=== PATIENT | female | born 1985 | race Caucasian/White ===

== ENCOUNTER 2024-08-31 10:07 | Emergency (ER) | payer MEDICARE, MEDICAID ==
[~2024-08-31] VITALS: Ht 152.4 cm; Wt 44.0 kg
[2024-08-31 10:08] VITALS: PULSE 0; RESP 0; O2SAT 0
[2024-08-31 10:15] VITALS: BP 0/0; PULSE 0; RESP 0; O2SAT 0
[2024-08-31] MEDS ORDERED: EPINEPHrine HCL 1 MG/10 ML SYRG ONE (10:27)
--- NOTE | 2024-08-31 10:45 | ED.PDOC ---
History of Present Illness HPI Comments 39F is BIBA for the c/c of CPR x0930, today. Per EMS, the pt's father reported to the EMS that the pt tripped and fell, hitting her head onto a piece of wood at [employer] earlier today. The father stated that when they got back home the pt was complaining of a SEARS therefore which the pt passed out in front of the father. EMS states on receiving the call x 0924 and arriving x0928. On scene pupils were fixed/dilated, CPR started at 0930. En route to the ER EMS gave the pt Epinephrine x5, Narcan 4mg, intubation and I/O on Right Humerus. Arrival to the ED x1006 and CPR started x1006 and stopped x1032. I was not able to get a PMHx from the pt due from CPR but I did get some information from the EMS which include SZ-uncertified. Pt's family arrived to the ER shortly after the pt arrived. Chief Complaint: CPR Time Seen by MD: 10:06 Reviewed Notes: Nurses Notes, Sole Molder Notes, Medications, Allergies Allergies: Coded Allergies: NO KNOWN ALLERGIES (Unverified , 08/31/24) Information Source: Emergency Med Personnel Mode of Arrival: EMS Severity: Severe Timing: Minutes Duration: Since onset, Minutes Prehospital treatment: CPR, Intubation, Other (Epinephrine x5, Narcan 4mg and I/O on Right Humerus) Past Medical History PAST MEDICAL HISTORY: Seizures Surgical History: Denies all surgeries SOLAR SALES ASSESSOR History: No Pertinent SOLAR SALES ASSESSOR History Family History Family History: Reviewed,noncontributory to illness, Unknown Social History Smoker: Non-Smoker Alcohol: Denies ETOH Use Drugs: Denies Drug Use Lives In: Home Unable to Obtain due to: Medical Urgency, Intubated Was a procedure done? 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 Indication: Hypotension Room prepared for procedure: No Dray Truck Driver performed hand hygien: Yes Maximal sterile barrier precau: Mask/Eye shield, Sterile gown, Cap, Sterlie gloves, Large sterlie drape Skin Preparation: Chlorhexidine gluconate Skin preparation completely dr: Yes Insertion site: Right, Femoral Central line catheter type: Iet-[id number]-hbr dialysis Number of lumens: 3 Central line exchanged over a: Yes Antiseptic ointment applied to: No Post Assessment: No Pneumothorax Informed consent obtained: No Risks/benefits/alt described: No Differential Dx Considerations may include: Cardiac arrest, he will be, status epilepticus, X-Ray, Labs, Meds, VS Vital Signs Date Time Temp Pulse Resp B/P (MAP) Pulse Ox O2 Delivery O2 Flow Rate FiO2 08/31/24 11:01 Ambu-Bag 08/31/24 10:15 95.5 0 0 0/0 (0) 0 08/31/24 10:08 0 0 0 T-piece 0 100 100 X-Ray, Labs, Meds, VS Comment CPR performed, patient ultimately unfortunately. Time of 1ST Reevaluation: 10:32 Reevaluation 1ST: Worsened Patient Education/Counseling: Pt Unresponsive Family Education/Counseling: No Family Present Departure 1 Departure Time of Disposition: 17:31 Impression: Primary Impression: Cardiopulmonary arrest Disposition: 20 Condition: Critical Critical Care Note Critical Care Time?: Yes (45 min-critical care time only) Critical care comment: CRITICAL CARE TIME: 40 minutes Treatments/Evaluations: Close monitoring and treatment of unstable vital signs, cardiorespiratory, and neurologic status, while maintaining tight balance of fluid, respiratory, and cardiac interventions. This time includes discussing the case with the patient and the patients family. This time does not include all procedures stated elsewhere in this record. This time also includes reviewing old records, labs and radiological studies. This time includes examining and re- examining the patient. Additionally, this time also includes arranging care with admitting and consulting physicians. Stability Stability form required: No Heart Score Heart Score: Heart Score Response (Comments) Value History N/A 0 EKG N/A 0 Age N/A 0 Risk Factors N/A 0 Troponin N/A 0 Total 0 I personally scribed for JONATHAN ALEMAN MD ([email or web address]) on 08/31/24 at 10:45. Electronically submitted by Jimmie Caicedo ([email or web address]). JONATHAN ALEMAN MD Aug 31, 2024 10:45
--- NOTE | 2024-08-31 11:01 | RESUS ---
CODE BLUE ASSESSSMENT History of Events History of Events: Patient brought to ER via EMS CPR in progress Total downtime unclear Per family, patient had a fall injury at [employer] where she fell forward and hit her head on a wooden seat. Unknown cause of fall. Visible bruising to nasal area noted. Per family, patient has hx of seizures (unknown last seizure) and is normally aphasic. Family states patient was still awake after fall, bystanders assited patient into car. Family reports patient suddenly went unresponsive. EMS states patient was unresponsive and pulseless upon their arrival. CPR initially started by bystanders prior to EMS arrival. Last epi administered at approximately 1006 per EMS Initial Information Date: Aug 31, 2024 Time: 10:06 Location of Arrest: In Field Arrest Witnessed: Yes CPR started by whom: Bystander Pre-Hospital Care: ACLS Type of arrest: Cardiac, Respiratory Spontaneous Respirations: No Pulse Present: No Monitoring: Pulse Oximetry, Capnography, Telemetry Crash Cart Opened and Supplies: Yes Airway Ventilation Breathing at Onset: Assisted Oxygen Delivery Method: Ambu-Bag Artificial Ventilation: Bag/Endo tube Intubation Size: 6.0 cuffed Intubated by: EMS prior to ER arrival Intubated orally: Yes CO2 indicator used: Yes Confirmation: Auscultation, Exhaled CO2 Suctioning (Oral/Tracheal): Yes Circulation Circulation #1: Time: 10:08 Temperature (Fahrenheit): 95.9 Circulation Comment: asystole Circulation #2: Time: 10:12 Circulation Comment: asystole Circulation #3: Time: 10:15 Circulation Comment: asystole Circulation #4: Time: 10:18 Circulation Comment: asystole Circulation #5: Time: 10:21 Circulation Comment: asystole Circulation #6: Time: 10:25 Circulation Comment: asystole Circulation #7: Time: 10:28 Circulation Comment: asystole Circulation #8: Time: 10:31 Circulation Comment: asystole Procedure - IV Procedure - IV : Comment no peripheral iv access established by EMS no peripheral iv access established by hospital staff Procedure - Intraosseous Site of Intraosseous: Head of humerous Intraosseous inserted by: established by EMS prior to ER arrival Medications & Response Medications and Responses #1: Medication Time: 10:08 ADULT Medications Given ADULT: Sodium Bacarbinate 50 meq Route of Administration: IO EKG Rhythm: Asystole Medications and Responses #2: Medication Time: 10:08 ADULT Medications Given ADULT: Calcium Chloride 10 mL Route of Administration: IO EKG Rhythm: Asystole Medications and Responses #3: Medication Time: 10:09 ADULT Medications Given ADULT: Epinephrine 1 mg EKG Rhythm: Asystole Medications and Responses #4: Medication Time: 10:12 ADULT Medications Given ADULT: Epinephrine 1 mg Route of Administration: IO EKG Rhythm: Asystole Medications and Responses #5: Medication Time: 10:15 ADULT Medications Given ADULT: Epinephrine 1 mg Route of Administration: IO EKG Rhythm: Asystole Medications and Responses #6: Medication Time: 10:18 ADULT Medications Given ADULT: Epinephrine 1 mg Route of Administration: IO EKG Rhythm: Asystole Medications and Responses #7: Medication Time: 10:21 ADULT Medications Given ADULT: Epinephrine 1 mg Route of Administration: IO EKG Rhythm: Asystole Medications and Responses #8: Medication Time: 10:25 ADULT Medications Given ADULT: Epinephrine 1 mg Route of Administration: IV Medication Comment: Central line established at this time. all meds following administered throught this access EKG Rhythm: Asystole Medications and Responses #9: Medication Time: 10:28 ADULT Medications Given ADULT: Epinephrine 1 mg Route of Administration: IV EKG Rhythm: Asystole Medications and Responses #10: Medication Time: 10:28 ADULT Medications Given ADULT: Epinephrine 1 mg Route of Administration: IV EKG Rhythm: Asystole Medications and Responses #11: Medication Time: 10:29 ADULT Medications Given ADULT: Sodium Bacarbinate 50 meq Route of Administration: IV EKG Rhythm: Asystole Medications and Responses #12: Medication Time: 10:30 ADULT Medications Given ADULT: Calcium Chloride 10 mL Route of Administration: IV EKG Rhythm: Asystole Procedure - Central Venous Cat Central venous catheter time: 10:25 Central venous catheter site: Rt Femoral Central Venous Catheter Insert: Dr Bah 1 attempt Nurses Notes [place] Coma Scale Eye Opening: None (1) [place] Coma Scale Verbal: None (1) [place] Coma Scale Motor: None (1) Pupil Reaction: Non Reactive Bedside Blood Glucose: 231 EKG Rhythm: Asystole Time Code Ended Time Code Ended: 10:31 Post Arrest Status: Outcome of code: Unsuccessful Patient pronounced by: Dr Bah Time patient pronounced: 10:32 Family notified: Yes Attending called: Yes Code Team Present: Dr Olvin Lawson RN Inga RN Micheline RN Dave RN David ERT Sirisha RT Sara RT Darlyn [facility] Comment: Dr Bah gave verbal order for pulse check q3min and epi administration q3min Verbal verification established by DENZEL Santizo and Dr Bah Post Resuscitation Neurologica Pupil Size: 5 (5mm) Darlyn Jones Aug 31, 2024 11:01 JONATHAN BAH MD Aug 31, 2024 17:58
== END 2024-08-31 10:32 ==
LOC: EDBD 10:07 → ER 10:07
DX: I46.9 Cardiac arrest, cause unspecified (principal); R56.9 Unspecified convulsions; R51.9 Headache, unspecified; W01.198A Fall on same level from slipping, tripping and stumbling with subsequent striking against other object, initial encounter; Y93.89 Activity, other specified; Y92.89 Other specified places as the place of occurrence of the external cause; Y99.8 Other external cause status
CPT/HCPCS: 36556; 92950; 99285; J0171